=== PATIENT | male | born 1950 ===

== ENCOUNTER 2019-05-26 08:30 | Outpatient (CLI) | payer MEDICARE ==
[2019-05-26 11:33] LABS: Bilirubin Negative (Negative); Blood, Urine 2+ (Negative); Clarity Clear (Clear); Glucose, Urine (Dipstick) Normal (Negative); Leukocyte Negative Leu/uL (Negative); Nitrite Negative (Negative); Protein, Urine (Dipstick) Negative (Neg-Trace); RBC/HPF 21-50 HPF (0-3); Squamous Epithelial 0-3 HPF (0-3); WBC/HPF 0-3 HPF (0-3)
[2019-05-26 11:51] LABS: Bacteria/HPF 1+ HPF (None Seen)
== END 2019-05-26 08:31 | disposition home or self-care (01) ==
LOC: BURLABSP 08:30
PROVIDERS: ATTEND Family Medicine
DX: N39.0 Urinary tract infection, site not specified (principal)
CPT/HCPCS: 81001; 87086